=== PATIENT | female | born 1990 | race Caucasian/White ===

== ENCOUNTER 2019-05-01 18:25 | Inpatient (IN) | payer OTHER ==
[~2019-05-01] VITALS: Ht 144.8 cm; Wt 65.3 kg
[~2019-05-01 18:25] MED LIST: IBUP-1542 PO
[2019-05-01 18:56] VITALS: Ht 144.8 cm; Wt 65.3 kg
[2019-05-01] MEDS ORDERED: OXYTOCIN 30 UNITS/LR 500 ML IV SCH ×2 (19:00)
[2019-05-01] MEDS ORDERED: METHYLERGONOVINE 0.2 MG INJ IM PRN (19:00)
[2019-05-01] MEDS ORDERED: AMPICILLIN 2 GM/NS (PMX) 100 ML IV ONE (19:00)
[2019-05-01] MEDS ORDERED: IBUPROFEN 600 MG TAB PO PRN (19:00)
[2019-05-01] MEDS ORDERED: OXYTOCIN 30 UNITS/LR 500 ML IV PRN (19:00)
[2019-05-01] MEDS ORDERED: MISOPROSTOL 200 MCG TAB PR PRN (19:00)
[2019-05-01] MEDS ORDERED: BUTORPHANOL 2 MG INJ IV PRN (19:00)
[2019-05-01] MEDS ORDERED: CARBOPROST 250 MCG INJ IM PRN (19:00)
[2019-05-01] MEDS ORDERED: LIDOCAINE 1% (MPF) 30 ML INJ INJ PRN (19:00)
[2019-05-01] MEDS: LACTATED RINGER'S 1,000 ML IV SCH ×2 (19:51→23:22)
[2019-05-01] MEDS ORDERED: AMPICILLIN 1 GM/NS (PMX) 50 ML IV SCH (23:00)
[2019-05-01] MEDS ORDERED: LACTATED RINGER'S 1,000 ML IV PRN (23:06)
[2019-05-01] MEDS ORDERED: NALOXONE (0.4 MG/ML) INJ IV PRN (23:30)
[2019-05-01] MEDS ORDERED: ONDANSETRON 4 MG INJ IV PRN (23:30)
[2019-05-01] MEDS ORDERED: HYDROmorphONE 0.5 MG/0.5 ML SYG IV PRN ×2 (23:30)
[2019-05-01] MEDS ORDERED: FENTAnyl 2MCG/ML-ROPIV 0.2% 100 ML BAG EPI SCH (23:30)
[2019-05-01] MEDS ORDERED: DIPHENHYDRAMINE 50 MG INJ IV PRN (23:30)
[2019-05-01] MEDS ORDERED: KETOROLAC 30 MG INJ IV PRN (23:30)
[2019-05-02 01:30] VITALS: BP 118/57; PULSE 55; RESP 20
[2019-05-02] MEDS ORDERED: CARBOPROST 250 MCG INJ IM PRN (02:00)
[2019-05-02] MEDS ORDERED: MISOPROSTOL 200 MCG TAB PR PRN (02:00)
[2019-05-02] MEDS ORDERED: OXYCODONE/ASPIRIN (4.88/325) TAB PO PRN ×2 (02:00)
[2019-05-02] MEDS ORDERED: METHYLERGONOVINE 0.2 MG INJ IM PRN (02:00)
[2019-05-02] MEDS ORDERED: LANOLIN HPA 1 PKT TOP PRN (02:00)
[2019-05-02] MEDS ORDERED: WITCH HAZEL/GLYCERIN PAD PR PRN (02:00)
[2019-05-02] MEDS ORDERED: ZOLPIDEM 5 MG TAB PO PRN (02:00)
[2019-05-02] MEDS ORDERED: OXYTOCIN 30 UNITS/LR 500 ML IV PRN (02:00)
[2019-05-02] MEDS ORDERED: BENZOCAINE 20% 56 ML SPRAY TOP PRN (02:00)
[2019-05-02 04:17] VITALS: BP 107/59; PULSE 64; RESP 20
[2019-05-02] MEDS: IBUPROFEN 600 MG TAB PO SCH ×4 (05:48→23:37)
[2019-05-02 08:00] VITALS: BP 106/58; PULSE 61; RESP 18
[2019-05-02] MEDS: SENNA/DOCUSATE NA (8.6MG/50MG) TAB PO SCH ×2 (09:54→23:37)
[2019-05-02 12:45] VITALS: BP 122/64; PULSE 75; RESP 18
[2019-05-02 16:10] VITALS: BP 101/56; PULSE 74
[2019-05-02 20:00] VITALS: BP 115/62; PULSE 80; RESP 20
[2019-05-03 04:17] VITALS: BP 109/75; PULSE 60; RESP 20
[2019-05-03] MEDS: IBUPROFEN 600 MG TAB PO SCH ×3 (06:00→17:30)
[2019-05-03 08:00] VITALS: BP 104/57; PULSE 58; RESP 18
[2019-05-03] MEDS: SENNA/DOCUSATE NA (8.6MG/50MG) TAB PO SCH (10:30)
[2019-05-03 16:01] VITALS: BP 119/57; PULSE 84; RESP 18
[2019-05-04] MEDS ORDERED: DIPHTH/TET/ACEL PERTUSS (ADULT) 0.5 ML VIAL IM* ONE (09:00)
== END 2019-05-03 18:05 | disposition home or self-care (01) | DRG 807 ==
LOC: L-D 18:25 → PP1 05-02 01:23
PROVIDERS: ADMIT Obstetrics & Gynecology; ATTEND Obstetrics & Gynecology
PROC: 0HQ9XZZ Repair Perineum Skin, External Approach (ICD-10-PCS; principal; 2019-05-01)
PROC: 10E0XZZ Delivery of Products of Conception, External Approach (ICD-10-PCS; 2019-05-01)
DX: O70.0 First degree perineal laceration during delivery (principal); O48.0 Post-term pregnancy; O99.214 Obesity complicating childbirth; Z37.0 Single live birth; Z3A.40 40 weeks gestation of pregnancy
CPT/HCPCS: 76815; 85025; 85610; 85730; 86592; 86850; 86900; 86901; 87340; 99464; J0290; J2590; J7120